=== PATIENT | female | born 1970 | race Caucasian/White ===

== ENCOUNTER 2016-12-08 18:15 | Emergency (ER) | payer SELFPAY ==
[~2016-12-08] VITALS: Ht 165.1 cm; Wt 96.0 kg
[~2016-12-08 18:15] MED LIST: AMOXICILLIN875 MG PO; AUGMENTIN875TAB PO; BUSPIRONE7.5 MG PO; CITALOPRAM40 MG PO; DOXYCYCL HYC100 MG PO; FLEXERIL PO; FLUARIX QUADRIV1 IN1 IM; LASIX 10 MG10 MG/TA1 PO; LYRICA75 MG PO; METHADONE10 MG/5 ML PO; MUCINEX600 MG PO; NAPROSYN500 MG PO; NEURONTIN300 MG PO; PENICILLN VK500 MG PO; PRAVASTATIN SOD40 MG PO; PRAVASTATIN10 MG PO; PREDNISONE20 MG PO; TESSALON PER100 MG PO
[2016-12-08] MEDS ORDERED: METFORMIN500 M2 PO (19:59)
[2016-12-08] MEDS ORDERED: ORPHENADRINE100 MG PO (20:58)
[2016-12-08 21:00] VITALS: BP 126/65
== END 2016-12-08 21:00 | disposition home or self-care (01) | DRG 93 ==
LOC: ED 18:15
DX: G89.29 Other chronic pain (principal); F17.210 Nicotine dependence, cigarettes, uncomplicated; M54.5 Low back pain

== ENCOUNTER 2019-04-28 | Emergency (ER) | payer SELFPAY ==
[~2019-04-28] MED LIST changes: +METFORMIN500 M2 PO; +ORPHENADRINE100 MG PO
[2019-04-28] MEDS ORDERED: PAROXETINE HCL20 MG PO (16:58)
[2019-04-28] MEDS ORDERED: AMITRIPTYLIN75 MG PO (16:59)
== END 2019-04-28 17:05 | disposition home or self-care (01) | DRG 563 ==
PROC: 2W3CX1Z Immobilization of Right Lower Arm using Splint (ICD-10-PCS; principal; 2019-04-28)
DX: S52.591A Other fractures of lower end of right radius, initial encounter for closed fracture (principal); S52.611A Displaced fracture of right ulna styloid process, initial encounter for closed fracture; E11.9 Type 2 diabetes mellitus without complications; F17.200 Nicotine dependence, unspecified, uncomplicated; W18.30XA Fall on same level, unspecified, initial encounter; Y92.000 Kitchen of unspecified non-institutional (private) residence as the place of occurrence of the external cause; Z79.84 Long term (current) use of oral hypoglycemic drugs

== ENCOUNTER 2019-08-01 | Emergency (ER) | payer SELFPAY ==
[~2019-08-01] MED LIST changes: +AMITRIPTYLIN75 MG PO; +PAROXETINE HCL20 MG PO
== END 2019-08-01 17:25 | disposition home or self-care (01) | DRG 563 ==
PROC: 2W3DX1Z Immobilization of Left Lower Arm using Splint (ICD-10-PCS; principal; 2019-08-01)
DX: S52.502A Unspecified fracture of the lower end of left radius, initial encounter for closed fracture (principal); S52.612A Displaced fracture of left ulna styloid process, initial encounter for closed fracture; E11.9 Type 2 diabetes mellitus without complications; F17.200 Nicotine dependence, unspecified, uncomplicated; W01.0XXA Fall on same level from slipping, tripping and stumbling without subsequent striking against object, initial encounter; Y92.009 Unspecified place in unspecified non-institutional (private) residence as the place of occurrence of the external cause